=== PATIENT | female | born 1950 | race African-American/Black ===

== ENCOUNTER 2017-09-18 15:07 | Emergency (ER) | payer OTHER, MEDICARE ==
[2017-09-18 16:07] LABS: ADD MAN DIFF? NO
[2017-09-18] MEDS: IPRATRPIUM/ALBUTEROL 0.5/2.5MG 3 ML NEBU. NEB (16:08)
[2017-09-18 16:14] LABS: BASO # 0.1 x10^3/uL (0.0-0.2); BASO % 1 % (0-3); EOS # 0.3 x10^3/uL (0.0-0.7); EOS % 4 % (0-3); HEMATOCRIT 35.9 % (36.0-47.0); HEMOGLOBIN 11.9 g/dL (12.0-15.5); LYMPH # 1.8 x10^3/uL (1.0-4.8); LYMPH % 21 % (24-48); MEAN CORPUSCULAR HEMOGLOBIN 30 pg (25-35); MEAN CORPUSCULAR HGB CONC 33 g/dL (31-37); MEAN CORPUSCULAR VOLUME 89 fL (79-100); MONO # 0.8 x10^3/uL (0.0-1.1); MONO % 9 % (0-9); NEUT # 5.7 x10^3uL (1.8-7.7); NEUT % 66 % (31-73); PLATELET COUNT 321 x10^3/uL (140-400); RED BLOOD COUNT 4.04 x10^6/uL (3.50-5.40); RED CELL DISTRIBUTION WIDTH 14.9 % (11.5-14.5); WHITE BLOOD COUNT 8.7 x10^3/uL (4.0-11.0)
[2017-09-18 17:22] LABS: ANION GAP 8 (6-14); BLOOD UREA NITROGEN 17 mg/dL (7-20); CALCIUM 9.8 mg/dL (8.5-10.1); CARBON DIOXIDE 30 mmol/L (21-32); CHLORIDE 105 mmol/L (98-107); CREATININE 1.4 mg/dL (0.6-1.0); GFR 45.7; GLUCOSE 187 mg/dL (70-99); SODIUM 143 mmol/L (136-145)
[2017-09-18 17:33] LABS: NT-PRO BNP 96 pg/mL (0-124); TROPONINI < 0.017 ng/mL (0.000-0.055)
== END 2017-09-18 18:31 | disposition home or self-care (01) ==
LOC: ER 15:07
DX: J06.9 Acute upper respiratory infection, unspecified (principal); R06.00 Dyspnea, unspecified; I10 Essential (primary) hypertension; E11.9 Type 2 diabetes mellitus without complications; Z88.2 Allergy status to sulfonamides; Z88.8 Allergy status to other drugs, medicaments and biological substances
CPT/HCPCS: 36415; 71046; 80048; 83880; 84484; 85025; 93005; 94640; 99285-25; J7620

== ENCOUNTER → 2019-02-22 | Outpatient (CLI) | payer MEDICARE, OTHER ==
[2017-09-18 18:00] VITALS: BP 132/77
[~2019-02-22] MED LIST: ALBU2.5V8 INH
--- NOTE | 2019-02-23 15:42 | RAD ---
DATE: 02/22/2019 EXAM: MAMMO HAIM SCREENING BILATERAL HISTORY: Routine screening previous right breast biopsy. COMPARISON: 07/18/2013 This study was interpreted with the benefit of Computerized Aided Detection (CAD). Breast Density: SCATTERED The breast parenchyma shows scattered fibroglandular densities. Breast parenchyma level B. FINDINGS: Right upper outer breast lymph node is present. No suspicious calcifications, masses, or distortion. Previously evident right breast mass is not currently seen. IMPRESSION: No new suspicious finding. BI-RADS CATEGORY: 1 NEGATIVE RECOMMENDED FOLLOW-UP: 12M 12 MONTH FOLLOW-UP PQRS compliance statement: Patient information was entered into a reminder system with a target due date for the next mammogram. Mammography is a sensitive method for finding small breast cancers, but it does not detect them all and is not a substitute for careful clinical examination. A negative mammogram does not negate a clinically suspicious finding and should not result in delay in biopsying a clinically suspicious abnormality. "Our facility is accredited by the [employer] Mammography Program."
== END | disposition home or self-care (01) ==
LOC: MAMMO 11:11
PROVIDERS: ATTEND Internal Medicine
DX: Z12.31 Encounter for screening mammogram for malignant neoplasm of breast (principal)
CPT/HCPCS: 77063; 77067

== ENCOUNTER → 2020-05-06 | Outpatient (CLI) | payer MEDICARE ==
[2017-09-18 18:00] VITALS: BP 132/77
--- NOTE | 2020-05-06 10:05 | KCIC ---
CT HEAD/BRAIN WO History: Reason: Head injury left side, Lt ear pain, nausea/vomiting. / Spl. Instructions: / History : Comparison: None. Technique: Noncontrast CT imaging was performed of the head. Exposure: One or more of the following individualized dose reduction techniques were utilized for thi s examination: 1. Automated exposure control 2. Adjustment of the mA and/or kV according to patient size 3. Use of iterative reconstruction technique. Findings: No intracranial hemorrhage. No mass effect. No hydrocephalus. Extra-axial spaces are unremarkable. Post surgical changes of the orbits status post lens replacement. Imaged paranasal sinuses and mastoi d air cells are clear. No acute calvarial fracture. Impression: 1. No acute intracranial abnormality. Electronically signed by: Jovi Ray MD (05/06/2020 10:02 AM) [facility]
== END ==
LOC: KCIC CT 09:07
PROVIDERS: ATTEND Internal Medicine
DX: S09.8XXA Other specified injuries of head, initial encounter (principal); T74.11XA Adult physical abuse, confirmed, initial encounter; H92.02 Otalgia, left ear; X58.XXXA Exposure to other specified factors, initial encounter; Y93.89 Activity, other specified; Y92.89 Other specified places as the place of occurrence of the external cause; Y99.8 Other external cause status; Y07.9 Unspecified perpetrator of maltreatment and neglect
CPT/HCPCS: 70450

== ENCOUNTER → 2021-01-16 | Outpatient (CLI) | payer MEDICARE ==
[2017-09-18 18:00] VITALS: BP 132/77
--- NOTE | 2021-01-16 18:04 | RAD ---
INDICATION: Reason: LEG EDEMA / Spl. Instructions: / History: COMPARISON: None. TECHNIQUE: Grayscale, color and doppler ultrasound images were obtained of the bilateral lower extrem ity venous vasculature. RIGHT: No thrombus identified in the common femoral vein, femoral vein, popliteal vein or visualized calf ve ins. LEFT: No thrombus identified in the common femoral vein, femoral vein, popliteal vein or visualized calf ve ins. IMPRESSION: * No thrombus identified in deep venous system of bilateral lower extremities. Electronically signed by: Sudheer Jefferson MD (01/16/2021 6:02 PM) [id number]
== END ==
LOC: US 13:11
PROVIDERS: ATTEND Internal Medicine
DX: R60.0 Localized edema (principal)
CPT/HCPCS: 93970

== ENCOUNTER 2021-07-15 11:43 | Emergency (ER) | payer MEDICARE ==
[~2021-07-15] VITALS: Ht 160 cm; Wt 62.0 kg
[2021-07-15] MEDS ORDERED: ONDANSETRON PF 4 MG/2 ML VIAL. IVP ONE (12:00)
[2021-07-15] MEDS ORDERED: IV NORMAL SALINE 1000ML BAG 1,000 ML IV ONE (12:00)
[2021-07-15 12:19] LABS: BASO % 0 % (0-3); EOS % 0 % (0-3); HEMATOCRIT 28.8 % (36.0-47.0); HEMOGLOBIN 9.7 g/dL (12.0-15.5); LYMPH # 1.3 x10^3/uL (1.0-4.8); LYMPH % 27 % (24-48); MEAN CORPUSCULAR HEMOGLOBIN 31 pg (25-35); MEAN CORPUSCULAR HGB CONC 34 g/dL (31-37); MEAN CORPUSCULAR VOLUME 91 fL (79-100); MONO # 0.1 x10^3/uL (0.0-1.1); MONO % 3 % (0-9); NEUT # 3.4 x10^3/uL (1.8-7.7); NEUT % 70 % (31-73); PLATELET COUNT 258 x10^3/uL (140-400); RED BLOOD COUNT 3.19 x10^6/uL (3.50-5.40); RED CELL DISTRIBUTION WIDTH 16.1 % (11.5-14.5); WHITE BLOOD COUNT 4.7 x10^3/uL (4.0-11.0)
--- NOTE | 2021-07-15 12:25 | RAD ---
Single view of the chest. 07/15/2021 11:56 AM Indication: Hypotension Comparison: Chest radiograph September 18, 2017 Findings: There is no opacity projecting over the basilar right lower lobe measuring approximately 1. 9 cm in diameter. No pneumothorax, or pleural effusion is seen. Heart size is normal. Bony thorax is grossly intact. IMPRESSION: 1. 1.9 cm oval opacity projecting over the basilar right lower lobe. Recommend CT chest for further e valuation. 2. Diffuse interstitial coarsening Electronically signed by: Surya Hodge MD (07/15/2021 12:23 PM) [id number]
[2021-07-15 12:33] LABS: PROTHROMBIN TIME PATIENT 16.3 SEC (11.7-14.0)
--- NOTE | 2021-07-15 12:36 | PHYS DOC ---
Past Medical History Past Medical History: Diabetes-Type II, Hypertension Past Surgical History: Other Additional Past Surgical Histo: BARIATRIC Smoking Status: Never Smoker Alcohol Use: None Drug Use: None Adult General Chief Complaint Chief Complaint: HYPOTENSION HPI HPI Patient is a 70 year old female presenting to the emergency department for evaluation of dizziness and hypotension. Patient is coming from home where she says she has been dealing with abdominal pain nausea and vomiting and diarrhea for the past 4 to 5 months and it is worse since this morning. Patient says that she has diffuse upper abdominal pain and the emesis is nonbloody nonbilious and the diarrhea is nonbloody. She states that she has had a cholecystectomy but no other abdominal surgeries. I asked her if she takes medications for blood pressure and she denied. Patient reportedly had a bottle of oxycodone sitting next to her but she denied taking any of the medication and she has mu ltiple pill bottles that were brought with her including diuretics but she has reportedly not been taking them. She had a bottle of morphine sulfate 15 mg from 2013 that had 1 pill left in it. From my conversation with her she may be noncompliant with her medications. There was no blood thinners with her bottles. She is in no acute distress but is tachycardic and hypotensive. Review of Systems Review of Systems Constitutional: Denies fever or chills [] Eyes: Denies change in visual acuity, redness, or eye pain [] HENT: Denies nasal congestion or sore throat [] Respiratory: Denies cough or shortness of breath [] Cardiovascular: No additional information not addressed in HPI [] GI: + abdominal pain, nausea, vomiting, diarrhea [] : Denies dysuria or hematuria [] Musculoskeletal: Denies back pain or joint pain [] Integument: Denies rash or skin lesions [] Neurologic: Denies headache, focal weakness or sensory changes [] All other systems were reviewed and found to be within normal limits, except as documented in this note. Current Medications Current Medications Current Medications Medications (Trade) Dose Ordered Sig/Bren Start Time Stop Time Status Last Admin Dose Admin Ceftriaxone Sodium (Rocephin) 2 gm 1X ONCE 07/15/21 13:30 07/15/21 13:31 DC 07/15/21 13:31 2 GM Fentanyl Citrate (Fentanyl 2ml Vial) 50 mcg 1X ONCE 07/15/21 13:45 07/15/21 13:46 DC Info (CONTRAST GIVEN -- Rx MONITORING) 1 each PRN DAILY PRN 07/15/21 13:30 07/17/21 13:29 Iohexol (Omnipaque 300 Mg/ml) 75 ml 1X ONCE 07/15/21 13:15 07/15/21 13:17 DC 07/15/21 13:27 75 ML Norepinephrine Bitartrate 8 mg/ Dextrose 258 ml @ 11.997 mls/ hr 1X ONCE 07/15/21 13:30 07/16/21 11:00 Ondansetron HCl (Zofran) 4 mg 1X ONCE 07/15/21 12:00 07/15/21 12:01 DC Potassium Chloride/Sodium Chloride 1,000 ml @ 250 mls/hr Q4H ONCE 07/15/21 13:30 07/15/21 17:29 07/15/21 13:31 250 MLS/HR Sodium Chloride 1,000 ml @ 1,000 mls/hr 1X ONCE 07/15/21 12:00 07/15/21 12:59 DC 07/15/21 12:24 1,000 MLS/HR Allergies Allergies Allergies Coded Allergies Type Severity Reaction Last Updated Verified insulin,beef Allergy Severe Itching 09/18/17 Yes insulin,pork Allergy Severe Itching 09/18/17 Yes sulfamethoxazole Allergy Severe Itching 09/18/17 Yes trimethoprim Allergy Severe Itching 09/18/17 Yes Physical Exam Physical Exam Constitutional: Chronically ill-appearing female in no acute distress HENT: Normocephalic, atraumatic, bilateral external ears normal, oropharynx moist, no oral exudates, nose normal. [] Eyes: PERRLA, EOMI, conjunctiva normal, no discharge. [] Neck: Normal range of motion, no tenderness, supple, no stridor. [] Cardiovascular:Heart rate tachycardic with regular rhythm, no murmur [] Lungs & Thorax: Bilateral breath sounds coarse bilaterally Abdomen: Bowel sounds normal, soft, no tenderness, no masses, no pulsatile masses. [] Skin: Cool and pale Back: No tenderness, no CVA tenderness. [] Extremities: No tenderness, no cyanosis, no clubbing, ROM intact, 3+ edema bilateral lower extremities Neurologic: Alert and oriented X 3, normal motor function, normal sensory function, no focal deficits noted. [] Current Patient Data Vital Signs Vital Signs Date Time Temp Pulse Resp B/P (MAP) Pulse Ox O2 Delivery O2 Flow Rate FiO2 07/15/21 12:12 101.3 98 18 79/52 (61) 99 Room Air 101.3 Lab Values Laboratory Tests Test 07/15/21 12:00 07/15/21 12:30 07/15/21 12:35 White Blood Count 4.7 x10^3/uL (4.0-11.0) Red Blood Count 3.19 x10^6/uL (3.50-5.40) L Hemoglobin 9.7 g/dL (12.0-15.5) L Hematocrit 28.8 % (36.0-47.0) L Mean Corpuscular Volume 91 fL (79-100) Mean Corpuscular Hemoglobin 31 pg (25-35) Mean Corpuscular Hemoglobin Concent 34 g/dL (31-37) Red Cell Distribution Width 16.1 % (11.5-14.5) H Platelet Count 258 x10^3/uL (140-400) Neutrophils (%) (Auto) 70 % (31-73) Lymphocytes (%) (Auto) 27 % (24-48) Monocytes (%) (Auto) 3 % (0-9) Eosinophils (%) (Auto) 0 % (0-3) Basophils (%) (Auto) 0 % (0-3) Neutrophils # (Auto) 3.4 x10^3/uL (1.8-7.7) Lymphocytes # (Auto) 1.3 x10^3/uL (1.0-4.8) Monocytes # (Auto) 0.1 x10^3/uL (0.0-1.1) Eosinophils # (Auto) 0.0 x10^3/uL (0.0-0.7) Basophils # (Auto) 0.0 x10^3/uL (0.0-0.2) Prothrombin Time 16.3 SEC (11.7-14.0) H Prothrombin Time INR 1.4 (0.8-1.1) H Activated Partial Thromboplast Time 28 SEC (24-38) Sodium Level 141 mmol/L (136-145) Potassium Level 2.9 mmol/L (3.5-5.1) *L Chloride Level 110 mmol/L (98-107) H Carbon Dioxide Level 25 mmol/L (21-32) Anion Gap 6 (6-14) Blood Urea Nitrogen 37 mg/dL (7-20) H Creatinine 1.1 mg/dL (0.6-1.0) H Estimated GFR (Cockcroft-Gault) 59.6 BUN/Creatinine Ratio 34 (6-20) H Glucose Level 148 mg/dL (70-99) H Lactic Acid Level 3.0 mmol/L (0.4-2.0) H Calcium Level 7.9 mg/dL (8.5-10.1) L Total Bilirubin 0.5 mg/dL (0.2-1.0) Aspartate Amino Transferase (AST) 20 U/L (15-37) Alanine Aminotransferase (ALT) 20 U/L (14-59) Alkaline Phosphatase 150 U/L (46-116) H Creatine Kinase 40 U/L (26-192) Troponin I High Sensitivity 6 ng/L (4-50) HA-Qxj-Y-Type Natriuretic Peptide 489 pg/mL (0-124) H Total Protein 4.4 g/dL (6.4-8.2) L Albumin 1.3 g/dL (3.4-5.0) L Albumin/Globulin Ratio 0.4 (1.0-1.7) L Lipase < 10 U/L (73-393) L Thyroid Stimulating Hormone (TSH) 1.777 uIU/mL (0.358-3.74) Ethyl Alcohol Level < 10 mg/dL (0-10) Urine Collection Type U cath Urine Color Yellow Urine Clarity Hazy Urine pH 5.5 Urine Specific [place] 1.025 Urine Protein Trace mg/dL (NEG-TRACE) Urine Glucose (UA) Negative mg/dL (NEG) Urine Ketones (Stick) Negative mg/dL (NEG) Urine Blood Trace (NEG) Urine Nitrite Negative (NEG) Urine Bilirubin Negative (NEG) Urine Urobilinogen Dipstick 0.2 mg/dL (0.2 mg/dL) Urine Leukocyte Esterase Small (NEG) Urine RBC 1-2 /HPF (0-2) Urine WBC 11-20 /HPF (0-4) Urine Squamous Epithelial Cells Occ /LPF Urine Bacteria Many /HPF (0-FEW) Urine Opiates Screen Neg (NEG) Urine Methadone Screen Neg (NEG) Urine Barbiturates Neg (NEG) Urine Phencyclidine Screen Neg (NEG) Urine Amphetamine/Methamphetamine Neg (NEG) Urine Benzodiazepines Screen Neg (NEG) Urine Cocaine Screen Neg (NEG) Urine Cannabinoids Screen Neg (NEG) Urine Ethyl Alcohol Neg (NEG) Influenza Type A Antigen Negative (NEGATIVE) Influenza Type B Antigen Negative (NEGATIVE) SARS-CoV-2 Antigen (Rapid) Negative (NEGATIVE) Laboratory Tests 07/15/21 12:00 Laboratory Tests 07/15/21 12:00 EKG EKG Sinus rhythm at 90 bpm with normal axis no deviation no ST elevation or depr ession and normal T waves. Radiology/Procedures Radiology/Procedures [] Course & Med Decision Making Course & Med Decision Making I will check labs and imaging start on aggressive IV fluids and reassess. Patient continues to be hypotensive so she is being given aggressive fluid hydration and her MAP has been around 60-65 so I did order norepinephrine as needed for hypotension. Her potassium is being replaced. Patient does have findings of urinary tract infection so I started her on Rocephin. Patient will be admitted to the ICU in critical condition. Critical care time of 35 minutes. Dragon Disclaimer Dragon Disclaimer This electronic medical record was generated, in whole or in part, using a voice recognition dictation system. Departure Departure Impression: Primary Impression: UTI (urinary tract infection) Additional Impressions: Hypotension Lactic acid acidosis Hypokalemia Disposition: ADMITTED INPATIENT Admitting Physician: Navjot Bey Condition: CRITICAL Referrals: NAVJOT BEY MD (PCP) Problem Qualifiers Additional Impressions: Hypotension Hypotension type: unspecified hypotension type Qualified Codes: I95.9 - Hypotension, unspecified ARISTEO TORREZ DO July 15, 2021 12:36
[2021-07-15 12:55] LABS: ALBUMIN 1.3 g/dL (3.4-5.0); ALBUMIN/GLOBULIN RATIO 0.4 (1.0-1.7); ALK PHOS 150 U/L (46-116); ALT (SGPT) 20 U/L (14-59); ANION GAP 6 (6-14); AST (SGOT) 20 U/L (15-37); BLOOD UREA NITROGEN 37 mg/dL (7-20); BUN/CREATININE RATIO 34 (6-20); CALCIUM 7.9 mg/dL (8.5-10.1); CARBON DIOXIDE 25 mmol/L (21-32); CHLORIDE 110 mmol/L (98-107); CREATINE KINASE 40 U/L (26-192); CREATININE 1.1 mg/dL (0.6-1.0); GFR 59.6; GLUCOSE 148 mg/dL (70-99); SODIUM 141 mmol/L (136-145); TOTAL BILIRUBIN 0.5 mg/dL (0.2-1.0); TOTAL PROTEIN 4.4 g/dL (6.4-8.2)
[2021-07-15 12:56] LABS: LIPASE < 10 U/L (73-393)
[2021-07-15 12:58] LABS: COLOR,URINE YELLOW
[2021-07-15 12:59] LABS: BARBITURATES NEG (NEG); BENZODIAZEPINES NEG (NEG); BILIRUBIN,URINE NEGATIVE (NEG); CANNABINOIDS NEG (NEG); CLARITY,URINE HAZY; COCAINE NEG (NEG); METHADONE NEG (NEG); OPIATES NEG (NEG); PH,URINE 5.5; PHENCYCLIDINE NEG (NEG); PROTEIN,URINE TRACE mg/dL (NEG-TRACE); UROBILINOGEN,URINE 0.2 mg/dL (0.2 mg/dL)
[2021-07-15 13:00] LABS: BACTERIA,URINE MANY /HPF (0-FEW); NITRITE,URINE NEGATIVE (NEG)
[2021-07-15 13:03] LABS: POTASSIUM 2.9 mmol/L (3.5-5.1)
[2021-07-15 13:03] LABS: AMPHETAMINE/METHAMPHETAMINE NEG (NEG)
[2021-07-15 13:10] LABS: INFLUENZA A PATIENT NEGATIVE (NEGATIVE); INFLUENZA B PATIENT NEGATIVE (NEGATIVE)
[2021-07-15] MEDS ORDERED: IOHEXOL 300 MG/ML 100ML VIAL. IV ONE (13:15)
[2021-07-15] MEDS ORDERED: POTASSIUM CL 40MEQ IN 0.9%NACL 1,000 ML IV ONE (13:30)
[2021-07-15] MEDS ORDERED: NOREPINEPHRINE VIAL 8 MG in IV DEXTROSE 5% 250 ML IV ONE (13:30)
[2021-07-15] MEDS ORDERED: CONTRAST GIVEN. MC PRN (13:30)
[2021-07-15] MEDS ORDERED: cefTRIAXone IV Push 1 GM VIAL. IVP ONE (13:30)
[2021-07-15] MEDS ORDERED: fentaNYL PF VIAL 100 MCG/2 ML VIAL IVP ONE (13:45)
[2021-07-15] MEDS ORDERED: fentaNYL PF VIAL 100 MCG/2 ML VIAL IVP PRN (14:00)
[2021-07-15] MEDS ORDERED: ONDANSETRON PF 4 MG/2 ML VIAL. IVP PRN (14:00)
[2021-07-15 14:29] VITALS: BP 101/70
--- NOTE | 2021-07-15 14:29 | RAD ---
EXAM: CT CHEST, ABDOMEN, AND PELVIS WITH CONTRAST INDICATION: Abnormal chest x-ray, nausea vomiting diarrhea, abdominal pain COMPARISON: Chest radiograph same day TECHNIQUE: Helical CT imaging performed of the chest, abdomen and pelvis after administration of 75 m m Omnipaque 350 intravenous contrast. Sagittal and coronal reformats were obtained. One or more of the following individualized dose reduction techniques were utilized for this examinat ion: 1. Automated exposure control 2. Adjustment of the mA and/or kV according to patient size 3. Use of iterative reconstruction technique. FINDINGS: CHEST: Thyroid gland and thoracic inlet: Normal. Heart and great vessels: The heart is normal in size. No pericardial effusion. Thoracic aorta is norm al in caliber. There are acute pulmonary emboli in the right lung with nonocclusive pulmonary embolis m in the main right pulmonary artery extending into the lobar pulmonary arteries and likely into the proximal segmental pulmonary arteries in the upper, middle, and lower lobes, although the exam was no t optimized to evaluate the pulmonary arteries. Overall mild to moderate thrombus burden. No definite evidence of right heart strain. Mediastinum and che: No mediastinal or hilar lymphadenopathy. Suspect mild distal esophageal wall th ickening. Lungs and pleura: 1.9 x 1.7 cm nodular opacity in the peripheral right lower lobe.The lungs are other ramirez clear. No pleural effusion. Chest wall and axillae: No axillary lymphadenopathy. No acute osseous abnormality. Bones: There is degenerative disc disease. ABDOMEN AND PELVIS: Liver: The liver is normal in morphology. No focal liver lesion. Gallbladder/Biliary Tree: Gallbladder is surgically absent. Pancreas: Normal. Spleen: Normal. Adrenal Glands: Normal. Kidneys/Ureters/Bladder: The kidneys are normal in size and enhance symmetrically. There is a 1 cm si mple cyst in the right kidney. No hydronephrosis. There is a Carter catheter bladder. Reproductive Organs: Not visualized. Stomach, small bowel, and colon: There are surgical changes of gastric bypass. There is a perforation at the gastric pouch or gastrojejunal anastomosis medially (image 15 axial series and image 8 ray l series). The excluded stomach is normal in appearance. There is no small bowel obstruction. There i s diffuse wall thickening of the small bowel and colon. Vasculature: No aortic aneurysm. Portal, splenic and mesenteric, and splenic veins are patent. There is moderate calcified aortoiliac atherosclerosis. Lymph Nodes: No definite lymphadenopathy. Peritoneum and retroperitoneum: Moderate to large volume of pneumoperitoneum in the upper anterior ab domen. Diffuse ascites throughout the abdomen and pelvis. Bones: No acute osseous abnormality. There is degenerative disc disease. Other: Extensive anasarca. IMPRESSION: 1. Surgical changes of gastric bypass with perforation at the gastric pouch or gastrojejunal anastom osis. Moderate to large volume pneumoperitoneum in the upper anterior abdomen. 2. Acute pulmonary emboli in the right main and lobar pulmonary arteries, likely extending into segm ental pulmonary arteries in the right lung. Mild/moderate thrombus burden. No definite right heart st rain. 3. 1.9 cm nodular opacity in the subpleural right lower lobe. In the setting of pulmonary embolism, this may be a pulmonary infarct. A pulmonary nodule is also possible. Recommend follow-up CT after tr eatment to ensure resolution. 4. Diffuse wall thickening of the small bowel and colon. 5. Diffuse moderate ascites throughout the abdomen and pelvis. Extensive anasarca. FOR INTERNAL CODING PURPOSES Critical result: Findings discussed with ARISTEO TORREZ DO at 07/15/2021 2:05 PM. RESULT CODE: (C) Electronically signed by: Joi Guzman MD (07/15/2021 2:26 PM) [id number]
[2021-07-15] MEDS ORDERED: PIPERACILLIN/TAZOBACTAM 3.375 GM in IV NORMAL SALINE 50ML 50 ML IV ONE (14:45)
== END 2021-07-15 16:40 | disposition short-term general hospital (02) ==
LOC: ER 11:43 → UNDOADMIN 13:16 → 1 WEST ICU 13:16 → UNDODISIN 17:00
DX: N39.0 Urinary tract infection, site not specified (principal); E87.6 Hypokalemia; E87.2 Acidosis; I95.9 Hypotension, unspecified; Z20.822 Contact with and (suspected) exposure to COVID-19; R42 Dizziness and giddiness; E11.9 Type 2 diabetes mellitus without complications; I10 Essential (primary) hypertension; Z88.1 Allergy status to other antibiotic agents; Z88.2 Allergy status to sulfonamides; Z88.8 Allergy status to other drugs, medicaments and biological substances
CPT/HCPCS: 36415; 51702; 71045; 71260; 74177; 80053; 80307; 81001; 82550; 83605; 83690; 83880; 84443; 84484; 85025; 85610; 85730; 87040; 87077; 87086; 87186; 87428; 96361; 96365; 96367; 96375; 96376; 99285; G0480; J0696; J2543; J3010; J3480; J3490; J7030; J7060; Q9967; 96366; 96368; G0378